=== PATIENT | male | born 1990 | race Caucasian/White ===

== ENCOUNTER 2018-04-21 09:40 | Emergency (ER) | payer MEDICAID ==
[2018-04-21] MEDS ORDERED: LIDOCAINE 1% INJ-PF (10 MG/ML) 30 ML SDV INJ ONE (11:50)
[2018-04-21] MEDS ORDERED: DIPH/PERTUSS(ACELL)/TETANUS VAC/PF 0.5 ML SYR (>=10YO) IM ONE (12:50)
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
[2018-04-21 13:13] VITALS: BP 113/62
== END 2018-04-21 13:17 | disposition home or self-care (01) ==
LOC: ER 09:40
DX: S61.512A Laceration without foreign body of left wrist, initial encounter (principal); W26.8XXA Contact with other sharp object(s), not elsewhere classified, initial encounter; Z23 Encounter for immunization
CPT/HCPCS: 99282; 90471; 90715; 12002; L3908; J3490

== ENCOUNTER 2019-01-03 09:23 | Emergency (ER) | payer SELFPAY ==
[2019-01-03 09:40] VITALS: BP 133/72
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
== END 2019-01-03 11:36 | disposition home or self-care (01) ==
LOC: ER 09:23
DX: S62.336A Displaced fracture of neck of fifth metacarpal bone, right hand, initial encounter for closed fracture (principal); X58.XXXA Exposure to other specified factors, initial encounter; Y93.71 Activity, boxing
CPT/HCPCS: 99283

== ENCOUNTER 2019-06-14 09:35 | Emergency (ER) | payer SELFPAY ==
[2019-06-14] MEDS ORDERED: TETRACAINE HCL 0.5% OPH SOLN 4 ML OU ONE (10:01)
--- NOTE | 2019-06-14 10:03 | ER Document Report ---
ED Medical Screen (RME) - General Chief Complaint: Redness of Eye Stated Complaint: EYE IRRITATION Time Seen by Provider: 06/14/19 10:01 Mode of Arrival: Ambulatory Information source: Patient Notes: Patient states he was sanding drywall 8 days ago and then 2 days later he developed eye pain, redness and tearing. Patient denies any use of contact lenses. Patient denies any change in vision. I have greeted and performed a rapid initial assessment of this patient. A comprehensive ED assessment and evaluation of the patient, analysis of test results and completion of the medical decision making process will be conducted by additional ED providers. - Related Data Allergies/Adverse Reactions: No Known Allergies Allergy (Verified 01/03/19 09:25) Past Medical History - Social History Frequency of alcohol use: None Drug Abuse: None Renal/ Medical History: Denies: Hx Peritoneal Dialysis - Immunizations Immunizations up to date: Yes Physical Exam - Vital signs Vitals: Temp Pulse Resp BP Pulse Ox 98.2 F 78 16 119/78 97 06/14/19 09:40 06/14/19 09:40 06/14/19 09:40 06/14/19 09:40 06/14/19 09:40 - General Notes: Sclera injected bilaterally, patient tearing Course - Vital Signs Vital signs: Temp Pulse Resp BP Pulse Ox 98.2 F 78 16 119/78 97 06/14/19 09:40 06/14/19 09:40 06/14/19 09:40 06/14/19 09:40 06/14/19 09:40
--- NOTE | 2019-06-14 11:06 | ER Document Report ---
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 He denies any runny nose, congestion, cough, eye pain or trauma, double or blurry vision, or fevers. ROS: See HPI All other review of systems reviewed and otherwise negative Reviewed vital signs and nursing note as charted by RN. PHYSICAL EXAM: CONSTITUTIONAL: Alert and oriented and responds appropriately to questions. Well-appearing; well-nourished HEAD: Normocephalic; atraumatic EYES: PERRL; conjunctiva is injected bilaterally. Full extraocular range of motion. No periorbital swelling or erythema ENT: Normal nose; no rhinorrhea; moist mucous membranes; pharynx without lesions noted NECK: Supple without meningismus; non-tender; no cervical lymphadenopathy, no masses SKIN: No acute lesions noted NEURO: CN 2-12 intact - Related Data Allergies/Adverse Reactions: No Known Allergies Allergy (Verified 01/03/19 09:25) Past Medical History - General Information source: Patient - Social History Smoking Status: Current Every Day Smoker Frequency of alcohol use: None Drug Abuse: None Family History: Reviewed & Not Pertinent Patient has suicidal ideation: No Patient has homicidal ideation: No Renal/ Medical History: Denies: Hx Peritoneal Dialysis - Immunizations Immunizations up to date: Yes Physical Exam - Vital signs Vitals: Temp Pulse Resp BP Pulse Ox 98.2 F 78 16 119/78 97 06/14/19 09:40 06/14/19 09:40 06/14/19 09:40 06/14/19 09:40 06/14/19 09:40 - HEENT Visual acuity- Right eye: 20/25 Visual acuity- Left eye: 20/25 Visual acuity- Both eyes: 20/20 Corrective lenses worn: No Course - Re-evaluation Re-evalutation: 06/14/19 11:06 Given the above history and physical we will perform visual acuity exam, fluorescein exam, slit-lamp exam, and reassess. Given the time course of symptomatology I do believe that the patient most likely has some irritation from the eye secondary to drywall. 06/14/19 11:46 Visual acuity is excellent as recorded. No fluorescein uptake. No obvious foreign bodies on slit-lamp examination. No fluorescein uptake on slit-lamp examination. I have called the local payroll specialist to help expedite follow- up. - Vital Signs Vital signs: Temp Pulse Resp BP Pulse Ox 98.2 F 78 16 119/78 97 06/14/19 09:40 06/14/19 09:40 06/14/19 09:40 06/14/19 09:40 06/14/19 09:40 Discharge - Discharge Clinical Impression: Irritation of both eyes Disposition: HOME, SELF-CARE Additional Instructions: Come back immediately for any increased pain, blurry vision, fevers or vomiting, or any other acute problems. Please follow-up with the primary care physician as discussed as well as the optho doctor as provided. You want a place "preservative-free tears" that you get at the pharmacy every 2 hours in the bilateral eyes and then the eye ointment at nighttime. Prescriptions: Erythromycin Base [Erythromycin Oph 1 gm Oint Ud] 1 applic OP QHS #1 tube Referrals: JOSE D NORTH MD [ACTIVE STAFF] - Follow up as needed
[2019-06-14 12:14] VITALS: BP 109/60
== END 2019-06-14 12:14 | disposition home or self-care (01) ==
LOC: ER 09:35
DX: H57.89 Other specified disorders of eye and adnexa (principal); F17.200 Nicotine dependence, unspecified, uncomplicated
CPT/HCPCS: J3490